=== PATIENT | male | born 1985 | race Caucasian/White ===

== ENCOUNTER 2017-02-13 18:35 | Emergency (ER) | payer OTHER ==
[~2017-02-13] VITALS: Ht 170.2 cm; Wt 68.2 kg
[2017-02-13 18:51] VITALS: Ht 170.2 cm; Wt 68.2 kg
[2017-02-13] MEDS ORDERED: TRIMETHOPRIM/SULFAMETHOX (DS) TAB PO STA (19:59)
[2017-02-13] MEDS ORDERED: CEPHALEXIN 500 MG CAP PO STA (19:59)
[2017-02-13] MEDS ORDERED: LIDOCAINE 2%/EPI MPF (SDV) 20 ML VIAL INJ STA (20:00)
[2017-02-13] MEDS ORDERED: ACET325T33 PO (20:42)
[2017-02-13] MEDS ORDERED: SULF1TAB31 PO (20:42)
[2017-02-13] MEDS ORDERED: CEPH-443 PO (20:42)
--- NOTE | 2017-02-13 21:01 | ERD ---
ER Documentation Chief Complaint Date/Time DATE: 02/13/17 TIME: 20:59 Chief Complaint rt buttock abscess w/ increased pain last 4 days no fever HPI This is a 31-year-old male presenting to the emergency department complaining of an abscess to his right buttock for the past 4 days. Patient states it started off a pimple for the past 2 weeks and started growing for the past 3 days. He denies any fever. He states the pain is moderate in severity. Denies taking any medications for the ROS All systems reviewed and are negative except as per history of present illness. Medications Home Meds Active Scripts Acetaminophen* (Tylenol*) 325 Mg Tablet, 2 TAB PO Q4 Y for PAIN AND OR ELEVATED TEMP, #20 TAB Prov:MELANI CLARK PA-C 02/13/17 Sulfamethoxazole/Trimethoprim* (Bactrim Ds* Tablet) 1 Each Tablet, 1 TAB PO BID , #14 TAB Prov:MELANI CLARK PA-C 02/13/17 Cephalexin* (Keflex*) 500 Mg Capsule, 500 MG PO QID for 10 Days, CAP Prov:MELANI CLARK PA-C 02/13/17 Allergies Allergies: Coded Allergies: Penicillins (Verified Allergy, Unknown, 02/13/17) PMhx/Soc History of Surgery: No Anesthesia Reaction: No Hx Neurological Disorder: No Hx Respiratory Disorders: No Hx Cardiac Disorders: No Hx Psychiatric Problems: No Hx Miscellaneous Medical Probl: No Hx Alcohol Use: Yes (WINE ) Hx Substance Use: Yes (MARIJUANA ) Hx Tobacco Use: No Smoking Status: Current some day smoker Physical Exam Vitals Vital Signs Date Time Temp Pulse Resp B/P Pulse Ox O2 Delivery O2 Flow Rate FiO2 02/13/17 18:51 97.7 65 18 132/76 98 Physical Exam General: WD/WN, in no apparent distress, non-toxic appearing HENT: NC/AT Eyes: Conjunctiva normal Neck: Supple Pulm: Clear to auscultation, normal labored breathing; no wheezing/rales/ rhonchi heard CV: Good capillary refill GI: Non-distended, no guarding Back: No masses Ext: No clubbing, cyanosis, or edema Neuro: Moves on all fours Skin: Erythematous papule on the right buttock with surrounding erythema induration Psych: Normal mood Results 24 hrs Current Medications Medications (Trade) Dose Ordered Sig/Laureano Route PRN Reason Start Time Stop Time Status Last Admin Dose Admin Cephalexin (Keflex) 500 mg ONCE STAT PO 02/13/17 19:59 02/13/17 20:01 DC 02/13/17 20:24 Trimethoprim/ Sulfamethoxazole (Bactrim (Ds)) 1 tab ONCE STAT PO 02/13/17 19:59 02/13/17 20:01 DC 02/13/17 20:24 Lidocaine/ Epinephrine (Xylocaine 2%/ Epi Mpf(Sdv)) 20 ml ONCE STAT INJ 02/13/17 20:00 02/13/17 20:01 DC Procedures/MDM 31-year-old male presents to the emergency department with in abscess and surrounding cellulitis to his right buttock region There was no evidence of tendon or arterial damage. There was no evidence of osteomyelitis, lymphangitis, necrotizing fasciitis. In the ED he was given Keflex and Bactrim and procedure was done below Hemodynamically stable. Discussed two day wound check. return sooner if condition worsens. Patient understood and agreed with this plan. PROCEDURE NOTE: Verbal consent was obtained Wound was irrigated with normal saline Wound was cleansed with Betadine cc Lidocaine 1% with epinephrine was used as a local anesthetic #11 blade scalpel was used for a single incision. Copious drainage of purulence occurred Wound packed with iodoform gauze strips Procedure tolerated without complications Wound dressed with sterile gauze. Departure Diagnosis: Primary Impression: Abscess Additional Impression: Cellulitis Condition: Stable Patient Instructions: Cellulitis, Abscess, Incision And Drainage Additional Instructions: Follow up in 2 days in your clinic for wound check. Take all medicines as directed. Return to this facility if you are not improving as expected. MELANI CLARK PA-C Feb 13, 2017 21:01
== END 2017-02-13 21:15 | disposition home or self-care (01) ==
LOC: FTE 18:35
DX: L02.31 Cutaneous abscess of buttock (principal); F17.210 Nicotine dependence, cigarettes, uncomplicated